=== PATIENT | female | born 1970 | race Caucasian/White ===

== ENCOUNTER → 2022-09-18 | Outpatient (CLI) | payer OTHER ==
[~2022-09-18] MED LIST: WELLTAB40 PO
== END ==
LOC: M LABSMTC 11:56
PROVIDERS: ATTEND Anesthesiology
DX: Z01.812 Encounter for preprocedural laboratory examination (principal); Z11.52 Encounter for screening for COVID-19

== ENCOUNTER 2022-09-21 11:12 | Day surgery (SDC) | payer OTHER ==
[~2022-09-21] VITALS: Ht 154.9 cm; Wt 50.3 kg
[2022-09-21] MEDS ORDERED: LIDOCAINE 2% 100MG/5ML SDV (FOR ANES.) As Ordered ONE (11:30)
[2022-09-21] MEDS ORDERED: fentaNYL 100 MCG/2 ML INJECTION As Ordered ONE (11:30)
[2022-09-21] MEDS ORDERED: propofoL 200 MG/20 ML VIAL As Ordered ONE (11:30)
[2022-09-21] MEDS ORDERED: ONDANSETRON 4MG 2ML VIAL As Ordered ONE (11:30)
[2022-09-21] MEDS ORDERED: LR 1,000 ML IV SCH ×2 (11:30→14:50)
[2022-09-21] MEDS ORDERED: MIDAZOLAM INJ 2MG/2ML VIAL (J2250 PER 1MG) As Ordered ONE (11:31)
[2022-09-21] MEDS ORDERED: KETOROLAC 60MG 2ML VIAL As Ordered ONE (12:24)
[2022-09-21] MEDS ORDERED: ACETAMINOPHEN 1000MG 100ML IV BAG As Ordered ONE (12:24)
[2022-09-21] MEDS: ceFAZolin 2 GM/D5W 50 ML IV BAG As Ordered ONE (12:43)
[2022-09-21] MEDS: BUPIVACAINE HCL 0.5% 30ML VIAL As Ordered ONE (12:50)
[2022-09-21] MEDS: ceFAZolin SOD 2 GM in IV 1 EA IV ONE (12:50)
[2022-09-21] MEDS: LIDOCAINE 1% SDV 30ML VIAL As Ordered ONE (12:50)
[2022-09-21] MEDS ORDERED: GLYCOPYRROLATE INJ 0.2 MG/ML 2 ML VIAL As Ordered ONE (13:59)
[2022-09-21] MEDS ORDERED: oxyCODONE 5MG TAB PO PRN (14:50)
[2022-09-21] MEDS: ONDANSETRON 4MG 2ML VIAL IV PRN (15:19)
[2022-09-21 16:14] VITALS: BP 111/78
== END 2022-09-21 16:17 | disposition home or self-care (01) ==
LOC: M SDC 11:12
PROVIDERS: ATTEND Podiatrist Foot & Ankle Surgery
DX: M21.611 Bunion of right foot (principal); M20.11 Hallux valgus (acquired), right foot; M20.41 Other hammer toe(s) (acquired), right foot; F17.210 Nicotine dependence, cigarettes, uncomplicated; Z91.040 Latex allergy status; Z79.899 Other long term (current) drug therapy

== ENCOUNTER 2022-11-20 07:56 | Emergency (ER) | payer SELFPAY ==
[~2022-11-20] VITALS: Ht 154.9 cm; Wt 52.4 kg
[2022-11-20] MEDS ORDERED: CEPH500C PO (08:06)
[2022-11-20] MEDS ORDERED: MUPI30CR TOP (08:06)
[2022-11-20] MEDS ORDERED: NS 1,000 ML IV ONE (12:00)
[2022-11-20] MEDS ORDERED: KETOROLAC 30 MG/ML 1ML VIAL IV ONE (12:00)
[2022-11-20] MEDS ORDERED: VANCOMYCIN HCL 1,000 MG, VIAL MATE ADAPTER 1 EACH in NS 250 ML IV ONE (12:40)
[2022-11-20 12:58] LABS: BASO # 0.1 10^3/uL (0.0-0.2); BASO % 0.8 % (0.0-1.0); EOS # 0.2 10^3/uL (0.0-0.5); EOS % 2.7 % (0.0-3.0); HEMATOCRIT 45.7 % (36.0-47.0); HEMOGLOBIN 15.2 g/dl (12.0-15.5); LYMPH # 1.8 10^3/uL (1.5-5.0); LYMPH % 30.9 % (24.0-44.0); MEAN CORPUSCULAR HEMOGLOBIN 31.7 pg (27.0-33.0); MEAN CORPUSCULAR HGB CONC 33.3 g/dl (32.0-36.5); MEAN CORPUSCULAR VOLUME 95.4 fl (80.0-96.0); MONO # 0.5 10^3/uL (0.0-0.8); MONO % 7.6 % (2.0-8.0); NEUTROPHILS # 3.4 10^3/uL (1.5-8.5); NEUTROPHILS % 57.7 % (36.0-66.0); PLATELET COUNT, AUTOMATED 245 10^3/uL (150-450); RED BLOOD COUNT 4.79 10^6/uL (4.00-5.40); WHITE BLOOD COUNT 5.9 10^3/uL (4.0-10.0)
[2022-11-20 13:21] LABS: BLOOD UREA NITROGEN 13 MG/DL (9-23); CALCIUM LEVEL 9.5 MG/DL (8.5-10.1); CARBON DIOXIDE LEVEL 26 MMOL/L (20-31); CHLORIDE LEVEL 109 MMOL/L (98-107); CREATININE FOR GFR 0.75 MG/DL (0.55-1.30); GLOMERULAR FILTRATION RATE > 60.0 (>51); GLUCOSE, FASTING 84 MG/DL (60-100); POTASSIUM SERUM 4.3 MMOL/L (3.5-5.1); SODIUM LEVEL 143 MMOL/L (136-145)
[2022-11-20 13:25] LABS: HCG, SERUM QUALITATIVE NEGATIVE (NEGATIVE)
[2022-11-20] MEDS ORDERED: ISOVUE-370 76% 100ML VIAL As Ordered ONE (13:58)
[2022-11-20] MEDS ORDERED: BACT800T5 PO (15:44)
[2022-11-20 15:56] VITALS: BP 115/68
== END 2022-11-20 16:01 | disposition home or self-care (01) ==
LOC: M ED 07:56
DX: T81.40XA Infection following a procedure, unspecified, initial encounter (principal); L03.115 Cellulitis of right lower limb; T81.30XA Disruption of wound, unspecified, initial encounter; S91.101A Unspecified open wound of right great toe without damage to nail, initial encounter; M19.071 Primary osteoarthritis, right ankle and foot; N28.1 Cyst of kidney, acquired; R91.1 Solitary pulmonary nodule; Z98.890 Other specified postprocedural states; F32.A Depression, unspecified; F41.9 Anxiety disorder, unspecified; Z91.040 Latex allergy status; F17.200 Nicotine dependence, unspecified, uncomplicated
CPT/HCPCS: 73630; 75635; 80048; 83605; 84703; 85025; 87040; 96365; 96366; 96375; 99284; J1885; Q9967

== ENCOUNTER → 2022-12-05 | Outpatient (CLI) | payer OTHER ==
[~2022-12-05] MED LIST changes: +BACT800T5 PO; +CEPH500C PO; +MUPI30CR TOP
== END ==
LOC: M RAD 07:12
PROVIDERS: ATTEND Family Medicine
DX: R91.1 Solitary pulmonary nodule (principal)

== ENCOUNTER 2023-03-15 10:47 | Emergency (ER) | payer OTHER ==
[~2023-03-15] VITALS: Ht 154.9 cm; Wt 55.9 kg
[2023-03-15 12:58] LABS: BASO % 0.5 % (0.0-1.0); EOS # 0.3 10^3/uL (0.0-0.5); EOS % 4.2 % (0.0-3.0); HEMATOCRIT 45.1 % (36.0-47.0); HEMOGLOBIN 15.2 g/dl (12.0-15.5); LYMPH # 1.5 10^3/uL (1.5-5.0); LYMPH % 24.7 % (24.0-44.0); MEAN CORPUSCULAR HGB CONC 33.7 g/dl (32.0-36.5); MEAN CORPUSCULAR VOLUME 94.9 fl (80.0-96.0); MONO # 0.6 10^3/uL (0.0-0.8); MONO % 9.9 % (2.0-8.0); NEUTROPHILS # 3.8 10^3/uL (1.5-8.5); NEUTROPHILS % 60.4 % (36.0-66.0); PLATELET COUNT, AUTOMATED 243 10^3/uL (150-450); RED BLOOD COUNT 4.75 10^6/uL (4.00-5.40); WHITE BLOOD COUNT 6.2 10^3/uL (4.0-10.0)
[2023-03-15 13:09] LABS: INR 0.91; PARTIAL THROMBOPLASTIN TIME 35.4 SECONDS (24.8-34.2); PROTHROMBIN TIME 12.5 SECONDS (12.5-14.5)
[2023-03-15 13:17] LABS: C REACTIVE PROTEIN QUANTITATIV < 0.40 MG/DL (<1.0)
[2023-03-15 13:18] LABS: BLOOD UREA NITROGEN 11 MG/DL (9-23); CARBON DIOXIDE LEVEL 29 MMOL/L (20-31); CHLORIDE LEVEL 106 MMOL/L (98-107); CREATININE FOR GFR 0.73 MG/DL (0.55-1.30); GLOMERULAR FILTRATION RATE > 60.0 (>51); GLUCOSE, FASTING 88 MG/DL (60-100); POTASSIUM SERUM 4.1 MMOL/L (3.5-5.1); SODIUM LEVEL 141 MMOL/L (136-145)
[2023-03-15 13:40] LABS: ERYTHROCYTE SEDIMENTATION RATE 9 mm/hr (0-30)
[2023-03-15] MEDS ORDERED: NAPR-837 PO (14:02)
[2023-03-15 14:13] VITALS: BP 112/71
== END 2023-03-15 14:18 | disposition home or self-care (01) ==
LOC: M ED 10:47
DX: G89.18 Other acute postprocedural pain (principal); F32.A Depression, unspecified; F41.9 Anxiety disorder, unspecified; Z91.040 Latex allergy status

== ENCOUNTER → 2023-04-03 | Outpatient (CLI) | payer OTHER ==
[~2023-04-03] MED LIST changes: +NAPR-837 PO
== END ==
LOC: M WHC 13:18
PROVIDERS: ATTEND Family Medicine
DX: M81.0 Age-related osteoporosis without current pathological fracture (principal)

== ENCOUNTER 2023-09-22 08:54 | Day surgery (SDC) | payer OTHER ==
[~2023-09-22] VITALS: Ht 154.9 cm; Wt 55.7 kg
[~2023-09-22 08:54] MED LIST changes: +BUPR150T12 PO; +CALC-356 PO; +LIDOCAINE 2% 100MG/5ML SDV (FOR ANES.) As Ordered ONE; +NS 1,000 ML IV ONE; +THERTAB52 PO; +propofoL 200 MG/20 ML VIAL As Ordered ONE
[2023-09-22 11:12] VITALS: BP 100/57; TEMP 97.7; O2SAT 97
== END 2023-09-22 11:30 | disposition home or self-care (01) ==
LOC: M OPP 08:54
PROVIDERS: ATTEND Internal Medicine Gastroenterology
DX: Z12.11 Encounter for screening for malignant neoplasm of colon (principal); Z80.0 Family history of malignant neoplasm of digestive organs; D12.6 Benign neoplasm of colon, unspecified; K57.30 Diverticulosis of large intestine without perforation or abscess without bleeding; K64.4 Residual hemorrhoidal skin tags; K64.8 Other hemorrhoids; Z79.899 Other long term (current) drug therapy; Z91.040 Latex allergy status

== ENCOUNTER → 2024-04-30 | Outpatient (CLI) | payer OTHER ==
[~2024-04-30] MED LIST changes: +GASTROGRAFIN SOLUTION 30ML As Ordered ONE; +ISOVUE-370 76% 100ML VIAL As Ordered ONE; -LIDOCAINE 2% 100MG/5ML SDV (FOR ANES.) As Ordered ONE; -NS 1,000 ML IV ONE; -propofoL 200 MG/20 ML VIAL As Ordered ONE
== END ==
LOC: M RAD 06:54
PROVIDERS: ATTEND Surgery
DX: K40.90 Unilateral inguinal hernia, without obstruction or gangrene, not specified as recurrent (principal)